=== PATIENT | female | born 1970 | race Caucasian/White ===

== ENCOUNTER 2018-07-14 13:10 | Emergency (ER) | payer MEDICAID, SELFPAY ==
[2018-07-14] VITALS (27 sets, daily range): BP systolic 144–179; BP diastolic 73–90; PULSE 87–101; RESP 16–26; TEMP 35.9–36.7; O2SAT 90–97
--- NOTE | 2018-07-14 14:05 | ED.GENADUL_ITS ---
Discharge Plan Disposition Patient Disposition: HOME Condition: Stable Discharge Details Chief Complaint: GenMedical Clinical Impression: Otitis media, URI (upper respiratory infection), Nausea vomiting and diarrhea Primary Care Provider: Namrata Navas ED Provider: Sheela Naik Home Meds and New Rx's Prescriptions: New amoxicillin 500 mg tablet 500 mg PO TID 10 Days Qty: 30 RF: 0 ondansetron HCl [Zofran] 4 mg tablet 4 mg PO TID PRN (Reason: nausea and vomiting) Qty: 6 RF: 0 No Action acetaminophen [Tylenol Extra Strength] 500 MG tablet 500 mg PO Q6H PRN RF: 0 omeprazole 10 MG capsule,delayed release(DR/EC) 20 mg PO DAILY RF: 0 albuterol sulfate 8.5 GM HFA aerosol inhaler 2 puff Inhalation Q6H PRN RF: 0 Loratadine 10 MG TAB.RAPDIS 10 mg PO DAILY RF: 0 metformin 500 MG tablet 500 mg PO HS RF: 0 cholecalciferol (vitamin D3) 1,000 UNITS tablet 3,000 units PO DAILY RF: 0 Discharge Instructions Instructions: Otitis Media (ED), Upper Respiratory Infection (ED), Acute Nausea and Vomiting (ED) Additional Instructions: Alternate Tylenol and Motrin as needed and directed for pain. Take [id number] cough and cold medication as needed and directed for your symptoms. If your symptoms do not improve or worsen over the next 3 days, you may start the antibiotics. Follow-up with your primary care doctor in 1 week for reevaluation. Return immediately to the emergency department any worsening or new concerning symptoms. Stand Alone Forms: Work Release Discharge Data Discharge Date/Time-TO BE ENTERED AT DEPARTURE: 07/14/18 16:10 Discharge Physician: Sheela Naik Medical Decision Making 48-year-old female with history of asthma, GERD, obesity, diabetes who presents with headache, sore throat, ear pain, nasal congestion, dry cough, vomiting and diarrhea for the past 5 days. She did also admit to one episode today of bright red rectal bleeding but states she has a history of hemorrhoids. She states she has had normal bowel movement since then. Blood pressure hypertensive, heart rate mildly elevated on arrival. Afebrile. Patient has bilateral TM erythema and dullness. Diminished breath sounds with scattered wheezing throughout. She denies any chest pain or shortness of breath or dizziness. Her abdomen is soft and nontender. She appears nontoxic and in no acute distress. No meningeal signs. No focal deficits. Differential diagnosis includes URI, viral syndrome, influenza, pneumonia. Patient had an IV placed on arrival. Will give fluids, Toradol, Compazine, Benadryl, and check a rapid influenza. After these orders were placed, patient is refusing and is requesting to go home. She also refused rectal exam. Patient had labs drawn on arrival which she does not want to wait for this. The labs were resulted and do appear un remarkable. Influenza negative. Discussed with patient with her bilateral ear pain which is one of her main complaints, will give a prescription for antibiotics if her symptoms do not improve or worsen. Instructed to follow-up with primary care doctor and return here at any time if worse. HPI General Mode of arrival: ambulatory . Date/Time Provider Initiated Documentation: 07/14/18 14:03 . Limitations to Documentation: no limitations . Information obtained by: patient . HPI Narrative: Patient is a 48-year-old female with history of asthma, GERD, obesity, diabetes who presents with headache, sore throat, ear pain, nasal congestion, dry cough, vomiting and diarrhea for the past 5 days. She did also admit to one episode today of bright red rectal bleeding but states she has a history of hemorrhoids. She states she has had normal bowel movement since then. She states the symptoms bothering her the most are in the headache, ear pain, and nasal congestion. She denies any sick contacts, recent travel or recent antibiotics. Patient states her cough has been dry. She denies any neck pain. Related Data Home Medications Medication Instructions Recorded Confirmed acetaminophen [Tylenol Extra 500 mg PO Q6H PRN tab-cap 09/27/13 07/14/18 Strength] albuterol sulfate 2 puff INHALATION Q6H PRN inhaler 09/27/13 07/14/18 omeprazole 20 mg PO DAILY tab-cap 09/27/13 07/14/18 Loratadine 10 mg PO DAILY tab-cap 08/06/17 07/14/18 metformin 500 mg PO HS 08/25/17 07/14/18 cholecalciferol (vitamin D3) 3,000 units PO DAILY 10/15/17 07/14/18 amoxicillin 500 mg PO TID 10 Days #30 tab 07/14/18 ondansetron HCl [Zofran] 4 mg PO TID PRN #6 tab 07/14/18 Previous Rx's Medication Instructions Recorded amoxicillin 500 mg PO TID 10 Days #30 tab 07/14/18 ondansetron HCl [Zofran] 4 mg PO TID PRN #6 tab 07/14/18 Allergies Allergy/AdvReac Type Severity Reaction Status Date / Time ranitidine Allergy Mild Hives Unverified 12/02/17 14:58 ENVIRONMENTAL Allergy Mild Uncoded 12/02/17 14:58 FALSE POISTIVE PPD Allergy Mild Uncoded 12/02/17 14:58 General Stated Complaint: GenMedical ISAIAS: 3 Review of Systems Review of Systems All systems reviewed & are unremarkable except as noted in HPI and below Constitutional Reports as per HPI, Denies chills, Denies fever(s) and Reports headache(s) Eyes Denies blurry vision ENT Denies dizziness, Reports otalgia, Reports headache(s), Reports nasal congestion, Reports sore throat and Denies throat swelling Cardiovascular Denies chest pain and Denies dyspnea Respiratory Denies cough and Denies dyspnea Gastrointestinal Denies abdominal pain, Reports diarrhea and Reports vomiting Genitourinary Denies hematuria and Denies dysuria Musculoskeletal Denies back pain and Denies numbness Integumentary/Breasts Denies lesions and Denies rash Neurologic Denies dizziness, Reports headache(s), Denies focal weakness and Denies numbness Allergic/Immunologic Denies throat swelling [facility] Medical History Abdominal pain, epigastric Asthma Breast lump or mass Chronic diarrhea Contraception Dysfunctional uterine bleeding Fatigue GERD (gastroesophageal reflux disease) Hemorrhoids Hx of colonic polyp Morbid obesity Palpitations Prediabetes Rectal bleeding Tobacco abuse Surgical History Cholecystectomy Colonoscopy - MAC (02/07/17) Colonoscopy - MAC (09/03/17) Repair of umbilical hernia Family History Mother Colon cancer Sister Colon cancer Brother Colon cancer Social History Smoking/Tobacco Use Status: Current every day alcohol intake: current alcohol intake frequency: a few times a month substance use type: does not use Exam Const General: cooperative Nutritional Appearance: obese Orientation: alert, awake and oriented x3 HENMT Head: normal to inspection Ears: hearing grossly normal bilaterally, EAC abnormal erythema bilaterally and TM abnormal dull and erythematous bilaterally General nose exam: external nose normal Face and sinus: normal facial exam and tenderness bilaterally Mouth: oral mucosae normal Teeth and gingiva: dentition normal Throat: posterior oropharynx normal Eyes General: appearance normal, both eyes and all related structures Eyelids: eyelids normal EOM: EOM intact bilaterally Neck Neck: normal visual inspection Lymphatic: no lymphadenopathy noted Chest Chest: normal inspection of the chest Resp Effort & Inspection: normal respiratory effort and able to speak in complete sentences Auscultation: diminished lung sounds bilaterally throughout and wheezes scattered wheezes Cardio Rate: regular rate Rhythm: regular rhythm GI Inspection: normal to inspection and obesity Palpation: soft, not firm, no guarding, no hepatosplenomegaly, no masses and nontender Auscultation: normal bowel sounds Back/Spine/Pelvis Back: no CVA tenderness Skin General skin exam: no rashes or lesions noted Neuro General: alert and awake Cognition: normal cognition Speech: speech normal Gait: normal gait Motor: muscle tone normal throughout Sensory Exam: no sensory deficits noted Extrem General: normal to inspection, full ROM, normal capillary refill and no edema Psych Appearance: grossly normal Mental Status: mental status grossly normal Speech and Movement: speech and movement normal Affect: normal affect Thought Process: normal Course Vital Signs Temperature 96.6 F L 07/14/18 13:14 Pulse 101 H 07/14/18 13:14 Respiratory Rate 22 07/14/18 13:14 Blood Pressure 179/82 H 07/14/18 13:14 Pulse Oximetry 97 07/14/18 13:14 Temperature 98.1 F 07/14/18 13:55 Temperature Source Temporal Artery Scan 07/14/18 13:55 Pulse 91 H 07/14/18 13:55 Respiratory Rate 20 07/14/18 13:55 Respiratory Effort 07/14/18 13:51 Respiratory Depth Normal 07/14/18 13:51 Respiratory Pattern Normal 07/14/18 13:51 Blood Pressure 162/76 H 07/14/18 13:55 Blood Pressure Position Sitting 07/14/18 13:14 Pulse Oximetry 93 L 07/14/18 13:55 Oxygen Delivery Method Room Air 07/14/18 13:55 Oxygen Flow Rate 0 07/14/18 13:55 Pain Level 5 07/14/18 13:55 Comment 07/14/18 13:55
--- NOTE | 2018-07-14 14:32 | NUR.NOTE ---
pt stated that she dosn't want any meds or iv fluids this is taking to long and she just wants to go home ER doctor notified Nursing Note:
[2018-07-14 14:35] LABS: HCT 46.8 % (36.0-46.0); HGB 15.2 g/dL (12.0-15.5); Mean Corp. HGB Concentration 32.5 g/dL (32.0-36.0); Mean Corpuscular Hemoglobin 28.5 pg (27.0-33.0); Mean Corpuscular Volume 87.6 fL (80-95); Platelet Count 297 x1000/uL (130-400); RBC 5.34 m/cumm (4.00-5.20); RBC Distribution Width 14.9 % (11.7-14.6); White Blood Cell Count 9.92 k/cumm (4.4-10.8)
--- NOTE | 2018-07-14 14:43 | NUR.NOTE ---
ER dcotor ask if pt could wait till she came to see her before leaveing the er and pt stated that she would wait Nursing Note:
[2018-07-14 14:58] LABS: ALT 27 U/L (12-78); AST 11 U/L (15-37); Albumin 3.2 g/dL (3.4-5.0); Alkaline Phosphatase 64 U/L (46-116); Anion Gap 5.4 mmol/L (3-11); BUN 10 mg/dL (7-18); Bilirubin, Total 0.4 mg/dL (0.2-1.0); CO2 33.6 mmol/L (21.0-32.0); CREATININE 0.57 mg/dL (0.55-1.02); Calcium 9.3 mg/dL (8.5-10.1); Chloride 101 mmol/L (98-107); Glucose 126 mg/dL (70-100); Potassium 4.3 mmol/L (3.5-5.1); Sodium 140 mmol/L (136-145); Total Protein 7.3 g/dL (6.4-8.2)
[2018-07-14 14:59] LABS: Troponin I < 0.02 ng/mL (0.00-0.06)
== END 2018-07-14 16:10 | disposition home or self-care (01) ==
PROVIDERS: Emergency Provider Physician Assistant; PCP Nurse Practitioner Family
DX: H66.93 Otitis media, unspecified, bilateral (principal); R06.2 Wheezing; R51 Headache; R11.2 Nausea with vomiting, unspecified; R19.7 Diarrhea, unspecified; R05 Cough; J02.9 Acute pharyngitis, unspecified; I10 Essential (primary) hypertension; Z53.29 Procedure and treatment not carried out because of patient's decision for other reasons
CPT/HCPCS: 36415; 80048; 80053; 85027; 87449; 99283; 84484; 85025

== ENCOUNTER 2018-08-17 01:45 | Outpatient (CLI) | payer MEDICAID, SELFPAY ==
[2018-08-17] MEDS: Omnipaque 350 MG/ML 50 ML BTL IJ (09:18)
[2018-08-17] MEDS: Breeza Beverage 473 ML BTL PO ×2 (10:50→10:51)
[2018-08-17] MEDS: Omnipaque 350 MG/ML 100 ML BTL IJ (10:50)
--- NOTE | 2018-08-17 10:50 | DI.CT_ITS ---
SYMPTOMS/DIAGNOSIS: RIGHT LOWER QUADRANT ABDOMINAL PAIN, R10.31; H/O PARTIAL RESECTION OF COON, Z90.49 CT OF THE ABDOMEN AND PELVIS: Comparison is made with noncontrast exam dated October,. Images were performed from the lung bases through the ischial tuberosities after oral and IV contrast. The lung bases are clear. The heart size is normal. The liver shows severe fatty infiltration with some sparing at the tip of the right lobe. The liver is also enlarged. The patient is status post cholecystectomy. There is no biliary dilatation. The spleen, adrenals, pancreas and kidneys are unremarkable. The patient is status post right colectomy. There is no bowel dilatation or inflammatory change. The small bowel is unremarkable. The bladder, uterus and ovaries are also unremarkable. A small amount of fat is seen at the umbilicus. The aorta is normal in diameter. There are degenerative changes in the spine. IMPRESSION: 1. Status post right colectomy. No inflammation or bowel dilatation is seen. 2. Severe fatty infiltration of the liver. No biliary dilatation. Status post cholecystectomy.
== END 2018-08-17 02:05 ==
PROVIDERS: PCP Nurse Practitioner Family; Visit Provider Nurse Practitioner Family
DX: R10.31 Right lower quadrant pain (principal); K76.0 Fatty (change of) liver, not elsewhere classified; Z90.49 Acquired absence of other specified parts of digestive tract
CPT/HCPCS: 74177; J3490; Q9967

== ENCOUNTER 2018-10-08 16:17 | Emergency (ER) | payer MEDICAID, SELFPAY ==
[2018-10-08] VITALS (13 sets, daily range): BP systolic 121–142; BP diastolic 63–94; PULSE 91–104; RESP 18–27; TEMP 36.7; O2SAT 88–95
--- NOTE | 2018-10-08 16:32 | ED.GENADUL_ITS ---
Discharge Plan Disposition Patient Disposition: HOME Condition: Stable Discharge Details Chief Complaint: Palpitatns Clinical Impression: Palpitations Primary Care Provider: Namrata Navas ED Provider: Alexys Bowers Home Meds and New Rx's Prescriptions: No Action acetaminophen [Tylenol Extra Strength] 500 MG tablet 500 mg PO Q6H PRN RF: 0 omeprazole 10 MG capsule,delayed release(DR/EC) 20 mg PO DAILY RF: 0 albuterol sulfate 8.5 GM HFA aerosol inhaler 2 puff Inhalation Q6H PRN RF: 0 Loratadine 10 MG TAB.RAPDIS 10 mg PO DAILY RF: 0 metformin 500 MG tablet 500 mg PO BID RF: 0 cholecalciferol (vitamin D3) 1,000 UNITS tablet 3,000 units PO DAILY RF: 0 aspirin [Aspirin Low Dose] 81 mg Tablet,Delayed Release (Dr/Ec) 81 mg PO DAILY RF: 0 Discharge Instructions Instructions: Palpitations (ED) Additional Instructions: follow up with your primary care provider within 1 week and discuss having outpatient heart monitor applied if you have severe worsening symptoms, difficulty breathing or fevers return to the emergency department Medical Decision Making 48 yo female with hx of DM, asthma, who comes in with a year of intermittent feeling her heart beating hard. today since 11am has had this feeling and continues to have this feeling and has unremarkable ekg and tele monitoring. Denies passing out ,chest pressure, pain with exertion or other symptoms typical of acs, heart score is 2, ekg nondiagnostic and heart score is 2, will send troponin. Will keep on tele to monitor for arrythmia though her tele is normal now and is having symptoms so doubt afib or vtach. She has no pleuritic chest pain, tachycardia to suggest PE, has a hx of smoking and asthma with some mild apical wheezing which likely is causing her mild hypoxia. No tearing back pain and normal vascular exam so doubt dissection pt remains stable, fell asleep and easily arouses on repeat exam. Tele unremar kable and labs unremarkable. Will d/c and advised f/u with pcp and return precautions given Differential Diagnosis afib, pvc's, anemia Lab Data Lab results reviewed: Yes I reviewed the patient's lab results. ECG Data Attestation: I personally reviewed and interpreted this ECG (s) as follows: Prior ECG tracings: not available for review Interpretation: sinus rhythm, rate of 100, pr 164, no acute st twave ischemic findings HPI General Mode of arrival: ambulatory . Date/Time Provider Initiated Documentation: 10/08/18 16:24 . Limitations to Documentation: no limitations . Information obtained by: patient . History of Present Illness 48 year old F presents to the emergency department with the chief complaint of palpitations, described as moderate, Quality is described as aching, and is localized to the chest. Patient reports no radiation. Patient started experiencing this year(s) (1) and it has been constant. No relieving factors improve sympto m(s), No exacerbating factors reported . Patient notes no other symptoms.. Patient did receive the following treatments prior to arrival, none Related Data Home Medications Medication Instructions Recorded Confirmed acetaminophen [Tylenol Extra 500 mg PO Q6H PRN tab-cap 09/27/13 10/08/18 Strength] albuterol sulfate 2 puff INHALATION Q6H PRN inhaler 09/27/13 10/08/18 omeprazole 20 mg PO DAILY tab-cap 09/27/13 10/08/18 Loratadine 10 mg PO DAILY tab-cap 08/06/17 10/08/18 metformin 500 mg PO BID 08/25/17 10/08/18 cholecalciferol (vitamin D3) 3,000 units PO DAILY 10/15/17 10/08/18 aspirin [Aspirin Low Dose] 81 mg PO DAILY 10/08/18 10/08/18 Allergies Allergy/AdvReac Type Severity Reaction Status Date / Time ranitidine Allergy Mild Hives Unverified 10/08/18 16:36 ENVIRONMENTAL Allergy Mild Uncoded 10/08/18 16:36 FALSE POISTIVE PPD Allergy Mild Uncoded 10/08/18 16:36 General ISAIAS: 3 Review of Systems Review of Systems All systems reviewed & are unremarkable except as noted in HPI and below Constitutional Denies chills, Denies fever(s) and Denies weakness ENT Denies change in voice Cardiovascular Denies dyspnea Respiratory Denies cough and Denies dyspnea Gastrointestinal Denies abdominal pain, Denies nausea and Denies vomiting Genitourinary Denies dysuria Musculoskeletal Denies joint swelling Integumentary/Breasts Denies rash Neurologic Denies weakness PFSH Medical History Abdominal pain, epigastric Asthma Breast lump or mass Chronic diarrhea Contraception Dysfunctional uterine bleeding Fatigue GERD (gastroesophageal reflux disease) Hemorrhoids Hx of colonic polyp Morbid obesity Palpitations Prediabetes Rectal bleeding Tobacco abuse Surgical History Cholecystectomy Colonoscopy - MAC (02/07/17) Colonoscopy - MAC (09/03/17) Repair of umbilical hernia Family History Mother Colon cancer Sister Colon cancer Brother Colon cancer Social History Smoking/Tobacco Use Status: Current every day Alcohol Intake: never Drug use: Never Substance use type: does not use Do you feel safe at home: Yes Do you feel safe in your relationship?: Yes Exam Const General: no acute distress Orientation: alert HENMT Head: normal to inspection Ears: external ears normal General nose exam: external nose normal Mouth: moist mucous membranes Eyes General: appearance normal, both eyes and all related structures Neck Neck: normal visual inspection Resp Effort & Inspection: normal respiratory effort and able to speak in complete sentences Cardio Rate: regular rate Skin General skin exam: no rashes or lesions noted Neuro General: alert and oriented x3 Extrem General: normal to inspection Psych Mental Status: mental status grossly normal
[2018-10-08 16:58] LABS: Abs Immature Grans 0.02 k/cumm (0.0-0.09); Absolute Basophil Count 0.03 k/cumm (0.0-0.2); Absolute Eosinophil Count 0.31 k/cumm (0.0-0.7); Absolute Lymphocyte Count 2.51 k/cumm (1.2-3.4); Absolute Monocyte Count 0.69 k/cumm (0.11-0.7); Absolute Neutrophil Count 7.04 k/cumm (1.2-6.7); Basophils % 0.3; Eosinophils % 2.9; HCT 43.8 % (36.0-46.0); HGB 14.3 g/dL (12.0-15.5); Immature Grans % 0.2; Lymphocytes % 23.7; Mean Corp. HGB Concentration 32.6 g/dL (32.0-36.0); Mean Corpuscular Hemoglobin 28.7 pg (27.0-33.0); Mean Platelet Volume 10.1 fL (8.0-11.0); Monocytes % 6.5; Neutrophils % 66.4; Platelet Count 231 x1000/uL (130-400); RBC 4.98 m/cumm (4.00-5.20); RBC Distribution Width 14.4 % (11.7-14.6)
[2018-10-08 17:15] LABS: ALT 34 U/L (12-78); AST 12 U/L (15-37); Albumin 3.1 g/dL (3.4-5.0); Alkaline Phosphatase 68 U/L (46-116); Anion Gap 7.2 mmol/L (3-11); BUN 16 mg/dL (7-18); Bilirubin, Total 0.4 mg/dL (0.2-1.0); CO2 27.8 mmol/L (21.0-32.0); CREATININE 0.64 mg/dL (0.55-1.02); Calcium 8.8 mg/dL (8.5-10.1); Chloride 102 mmol/L (98-107); Glucose 166 mg/dL (70-100); Magnesium 1.7 mg/dL (1.8-2.4); Potassium 3.9 mmol/L (3.5-5.1); Sodium 137 mmol/L (136-145); Total Protein 6.8 g/dL (6.4-8.2)
[2018-10-08 17:39] LABS: Troponin I < 0.02 ng/mL (0.00-0.06)
== END 2018-10-08 17:53 | disposition home or self-care (01) ==
PROVIDERS: Emergency Provider Emergency Medicine; PCP Nurse Practitioner Family
DX: R00.2 Palpitations (principal); E11.9 Type 2 diabetes mellitus without complications; Z79.84 Long term (current) use of oral hypoglycemic drugs; J45.909 Unspecified asthma, uncomplicated; F17.210 Nicotine dependence, cigarettes, uncomplicated
CPT/HCPCS: 36415; 80053; 93005; 99284; 83735; 84484; 85025; 93010

== ENCOUNTER 2018-10-26 01:30 | Outpatient (CLI) | payer MEDICAID, SELFPAY ==
--- NOTE | 2018-10-30 09:49 | HOLTER_ITS ---
DATE OF DICTATION: October 30, 2018 INDICATION: Palpitations. 48-HOUR HOLTER MONITOR Baseline sinus rhythm. Average heart rates 100 bpm. Rare, isolated ventricular ectopy. No non-sustained VT. Rare, isolated atrial ectopy. No atrial fibrillation or SVT. No significant pauses or bradyarrhythmias. Diary entries of chest pounding/lightheadedness correspond to sinus rhythm. Overall sinus rhythm with rare ectopy.
== END 2018-10-26 01:50 ==
PROVIDERS: PCP Nurse Practitioner Family; Visit Provider Nurse Practitioner Family
DX: R00.2 Palpitations (principal); I49.3 Ventricular premature depolarization; I49.1 Atrial premature depolarization
CPT/HCPCS: 93225

== ENCOUNTER 2018-10-28 15:24 | Outpatient (CLI) | payer MEDICAID, SELFPAY | END 2018-10-28 15:44 | PROVIDERS: PCP Nurse Practitioner Family; Visit Provider Nurse Practitioner Family | DX: R00.2 Palpitations (principal); I49.3 Ventricular premature depolarization; I49.1 Atrial premature depolarization | CPT/HCPCS: 93226 ==

== ENCOUNTER 2019-09-20 16:32 | Outpatient (REF) | payer MEDICAID, SELFPAY ==
[2019-09-22 20:04] LABS: SARS-CoV-2 RNA Undetected (Undetected); SARS-CoV-2 Specimen Source Nasopharynx
== END 2019-09-20 16:52 ==
LOC: NCHCN 16:32
PROVIDERS: PCP Nurse Practitioner Family; Visit Provider Nurse Practitioner Family
DX: R05 Cough (principal); R50.9 Fever, unspecified
CPT/HCPCS: U0003

== ENCOUNTER 2019-10-19 10:38 | Outpatient (REF) | payer MEDICAID, SELFPAY ==
[2019-10-19 15:57] LABS: BUN 13 mg/dL (7-18); CREATININE 0.52 mg/dL (0.55-1.02); Calcium 9.1 mg/dL (8.5-10.1); Chloride 101 mmol/L (98-107); Glucose 118 mg/dL (74-106); Magnesium 1.7 mg/dL (1.8-2.4); Potassium 4.4 mmol/L (3.5-5.1); Sodium 140 mmol/L (136-145); Vitamin B12 215 pg/mL (193-986)
[2019-10-20 10:26] LABS: Hepatitis C Ab w Rflx HCV PCR Negative (Negative)
== END 2019-10-19 10:58 ==
LOC: NCHCN 10:38
PROVIDERS: PCP Nurse Practitioner Family; Visit Provider Family Medicine
DX: I10 Essential (primary) hypertension (principal); E83.42 Hypomagnesemia; Z90.49 Acquired absence of other specified parts of digestive tract; E11.9 Type 2 diabetes mellitus without complications; Z11.59 Encounter for screening for other viral diseases
CPT/HCPCS: 80048; 86803; 82607; 83735

== ENCOUNTER 2020-06-07 00:43 | Outpatient (CLI) | payer MEDICAID, SELFPAY ==
--- NOTE | 2020-06-07 09:30 | DI.MAMMO_ITS ---
EXAM: MG MAMMO SCREENING CLINICAL HISTORY: SCREENING,Z12.39 TECHNIQUE: Bilateral full field digital CC and MLO mammographic images were obtained with 3D tomosyn thesis and utilizing computer aided detection (CAD). COMPARISON: Available for comparison. FINDINGS: Masses/Architectural Distortion: None seen. Microcalcifications: No suspicious pleomorphic-type are seen. Skin Thickening/Nipple Retraction: None. IMPRESSION: 1. No significant interval change with no specific features of malignancy noted. 2. Unless there is more urgent need, screening mammography is recommended, as per [place] [employer] guidelines. BI-RADS Category 1 - Negative Breast Density - Category A - Almost entirely fatty Breast density category C or D implies that the patient has dense breast tissue. Dense breast tissue is very common and is not abnormal but dense breast tissue can make it harder to find cancer on a ma mmogram. Also, dense breast tissue may increase their breast cancer risk. This information about the result of the mammogram report was provided to the patient to raise their awareness. Use this report when you speak with the patient about their risks for breast cancer, which includes their family hist ory. At that time, you may recommend for more screening tests (Ultrasound or MRI) as they might be us eful based on their risk. A negative radiographic report should not delay biopsy if a dominant or clinically suspicious mass is present. Up to ten percent of cancers are not identified on mammography. A negative report may reinforce clinical impression. Adenosis and dense breasts may obscure an underlying neoplasm. False positive reports average 6 to 10%. Patient will receive a letter notifying them of these results.
== END 2020-06-07 01:03 ==
PROVIDERS: PCP Nurse Practitioner Family; Visit Provider Nurse Practitioner Family
DX: Z12.31 Encounter for screening mammogram for malignant neoplasm of breast (principal)
CPT/HCPCS: 77063; 77067

== ENCOUNTER 2020-07-28 14:24 | Outpatient (REF) | payer MEDICAID, SELFPAY ==
[2020-07-28 19:47] LABS: Anion Gap 8.6 mmol/L (3-11); BUN 14 mg/dL (7-18); CO2 29.4 mmol/L (21.0-32.0); CREATININE 0.5 mg/dL (0.55-1.02); Calcium 9.5 mg/dL (8.5-10.1); Calculated LDL 107 mg/dL (<100); Chloride 103 mmol/L (98-107); Cholesterol 181 mg/dL (<200); Glucose 114 mg/dL (74-106); HDL Cholesterol 39 mg/dL (40-60); Potassium 4.5 mmol/L (3.5-5.1); Sodium 141 mmol/L (136-145); Triglyceride 179 mg/dL (<150)
== END 2020-07-28 14:25 | disposition home or self-care (01) ==
LOC: NCHCN 14:24
PROVIDERS: PCP Nurse Practitioner Family; Visit Provider Nurse Practitioner Family
DX: I10 Essential (primary) hypertension (principal); Z13.220 Encounter for screening for lipoid disorders
CPT/HCPCS: 80048; 80061

== ENCOUNTER 2020-08-30 14:39 | Outpatient (REF) | payer MEDICAID, SELFPAY ==
[2020-08-30 19:41] LABS: HCT 43.9 % (36.0-46.0); MCH 28.4 pg (27.0-33.0); MCHC 31.9 % (32.0-36.0); MPV 10.7 fL (8.0-11.0); Platelet Count 272 10^3/uL (130-400); RBC 4.93 10^6/uL (3.93-5.22); RDW 13.8 % (11.7-14.6); RDW-SD 45.1 fL; WBC 9.08 10^3/uL (4.4-10.8)
== END 2020-08-30 14:40 | disposition home or self-care (01) ==
LOC: NCHCN 14:39
PROVIDERS: PCP Nurse Practitioner Family; Visit Provider Nurse Practitioner Family
DX: N64.89 Other specified disorders of breast (principal)
CPT/HCPCS: 85027

== ENCOUNTER 2020-12-14 11:28 | Outpatient (CLI) | payer MEDICAID, SELFPAY ==
--- NOTE | 2020-12-14 12:02 | DI.RAD_ITS ---
Exam(s) XR KNEE LT 3V AP,LAT,JOBY EXAM: XR KNEE LT 3V AP,LAT,JOBY CLINICAL HISTORY: KNEE PAIN M 25.562. TECHNIQUE: 2D digital imaging was performed. COMPARISON: No exams were available for comparison FINDINGS: There is no evidence of fracture. There appears to be a small amount of increased joint fluid. Mini mal degenerative changes. No joint space narrowing. No osteophytes. Bone density is normal. No om inous osseous lesions. IMPRESSION: No significant radiographic findings. There appears to be a small amount of increased joint fluid. Appropriate follow-up recommended. DATA REPOSITORY: RADIATION DOSE DELIVERED:
== END 2020-12-14 11:48 ==
PROVIDERS: PCP Nurse Practitioner Family; Visit Provider Physician Assistant Medical
DX: M25.562 Pain in left knee (principal)
CPT/HCPCS: 73562

== ENCOUNTER 2021-01-03 09:01 | Outpatient (CLI) | payer MEDICAID, SELFPAY ==
--- NOTE | 2021-01-03 08:45 | DI.RAD_ITS ---
Exam(s) XR KNEE LT 1V EXAM: XR KNEE LT 1V CLINICAL HISTORY: left knee pain. TECHNIQUE: 2D digital imaging was performed. COMPARISON: CR XR KNEE LT 3V AP,LAT,JOBY from 12/14/2020 FINDINGS: Single sunrise-merchant's view of the left knee. Other images of the left knee performed 12/14/2020 reviewed There is no fracture of the patella evident on this single view. However, there is mild lateral disp lacement by approximately 4-5 millimeters. The actual retropatellar joint space appears relatively well-preserved. No obvious osteochondral def ect. IMPRESSION: Mild lateral patellar displacement. No obvious fracture. DATA REPOSITORY: RADIATION DOSE DELIVERED:
== END 2021-01-03 09:02 | disposition home or self-care (01) ==
LOC: DIORS 09:01
PROVIDERS: PCP Nurse Practitioner Family; Referring Provider Nurse Practitioner Family; Visit Provider Student in an Organized Health Care Education/Training Program
DX: S83.015A Lateral dislocation of left patella, initial encounter (principal); X58.XXXA Exposure to other specified factors, initial encounter
CPT/HCPCS: 73560

== ENCOUNTER 2021-01-30 10:20 | Outpatient (REF) | payer MEDICAID, SELFPAY ==
--- NOTE | 2021-01-30 08:25 | PAPFT_PTH ---
PATIENT: [facility] Barone [id number] AGE/SX: 50/F ROOM: RE01/30/[address]: Namrata Navas : 1970 BED: DIS: 01/30/2021 SPEC #: [id number] RECD: 01/30/21 12:56 STATUS: BETHANY REMayi #: [id number] HARSHA: 01/30/21 08:[address]: Namrata Navas [facility]PT[facility] Cytology RECD BY: Destiny Campos Tissues: 1 - CX/ENDOCX FOR PAP SMEARS Procedures: PAP THIN PREP/UVM Screening HPV DNA PROBE Comments: [id number] (HPV 16 & 18/45)
== END 2021-01-30 10:21 | disposition home or self-care (01) ==
LOC: NCHCN 10:20
PROVIDERS: PCP Nurse Practitioner Family; Visit Provider Nurse Practitioner Family
DX: Z12.4 Encounter for screening for malignant neoplasm of cervix (principal); Z11.51 Encounter for screening for human papillomavirus (HPV); R87.810 Cervical high risk human papillomavirus (HPV) DNA test positive
CPT/HCPCS: 88142; 87624

== ENCOUNTER 2021-06-22 10:33 | Outpatient (REF) | payer MEDICAID, SELFPAY ==
[2021-06-22 16:00] LABS: Bilirubin Negative (Negative); Blood Negative (Negative); Clarity Clear (Clear); Glucose Negative (Negative); Ketones Negative (Negative); Leukocyte Esterase Negative (Negative); Nitrite Negative (Negative); Specific Gravity >= 1.030 (1.005-1.025); Urobilinogen 0.2 EU/dL (Up TO 0.2); pH 5.5 (5-8)
[2021-06-22 20:47] LABS: ALT 64 U/L (14-59); AST 38 U/L (15-37); Albumin 3.6 g/dL (3.4-5.0); Alkaline Phosphatase 70 U/L (46-116); Anion Gap 8.8 mmol/L (3-11); BUN 20 mg/dL (7-18); Bilirubin, Total 0.5 mg/dL (0.2-1.0); CO2 29.2 mmol/L (21.0-32.0); CREATININE 0.6 mg/dL (0.55-1.02); Chloride 102 mmol/L (98-107); Glucose 107 mg/dL (74-106); Potassium 4.6 mmol/L (3.5-5.1); Sodium 140 mmol/L (136-145); Total Protein 6.8 g/dL (6.4-8.2)
[2021-06-25 10:20] LABS: HIV-1/2 Ag & Ab Screen Negative (Negative)
== END 2021-06-22 10:34 | disposition home or self-care (01) ==
LOC: NCHCN 10:33
PROVIDERS: PCP Nurse Practitioner Family; Visit Provider Nurse Practitioner Family
DX: I10 Essential (primary) hypertension (principal); E11.9 Type 2 diabetes mellitus without complications; Z11.4 Encounter for screening for human immunodeficiency virus [HIV]; R35.1 Nocturia
CPT/HCPCS: 80053; 87389; 81003

== ENCOUNTER 2021-09-25 03:54 | Outpatient (CLI) | payer MEDICAID, SELFPAY | END 2021-09-25 03:55 | disposition home or self-care (01) | LOC: DS 03:54 | PROVIDERS: PCP Nurse Practitioner Family; Visit Provider Dietitian, Registered ==

== ENCOUNTER 2021-12-20 15:53 | Outpatient (REF) | payer MEDICAID, SELFPAY ==
[2021-12-20 14:30] LABS: Uric Acid 7.5 mg/dL (2.6-6.0)
== END 2021-12-20 15:54 | disposition home or self-care (01) ==
LOC: NCHCN 15:53
PROVIDERS: PCP Nurse Practitioner Family; Visit Provider Nurse Practitioner Family
DX: M79.671 Pain in right foot (principal); R79.89 Other specified abnormal findings of blood chemistry
CPT/HCPCS: 84550

== ENCOUNTER → 2021-12-25 01:56 | Outpatient (CLI) | payer MEDICAID, SELFPAY ==
--- NOTE | 2021-12-25 14:50 | DI.MAMMO_ITS ---
Exam(s) MAMMO SCREENING EXAM: MAMMO SCREENING CLINICAL HISTORY: SCREENING FOR BREAST CANCER Z12.39 TECHNIQUE: Bilateral full field digital CC and MLO mammographic images were obtained with 3D tomosyn thesis and utilizing computer aided detection (CAD). COMPARISON: Available for comparison. FINDINGS: Masses/Architectural Distortion: None seen. Microcalcifications: No suspicious pleomorphic-type are seen. Skin Thickening/Nipple Retraction: None. IMPRESSION: 1. No significant interval change with no specific features of malignancy noted. 2. Unless there is more urgent need, screening mammography is recommended, as per [place] [employer] guidelines. BI-RADS Category 1 - Negative Breast Density - Category A - Almost entirely fatty Breast density category C or D implies that the patient has dense breast tissue. Dense breast tissue is very common and is not abnormal but dense breast tissue can make it harder to find cancer on a ma mmogram. Also, dense breast tissue may increase their breast cancer risk. This information about the result of the mammogram report was provided to the patient to raise their awareness. Use this report when you speak with the patient about their risks for breast cancer, which includes their family hist ory. At that time, you may recommend for more screening tests (Ultrasound or MRI) as they might be us eful based on their risk. A negative radiographic report should not delay biopsy if a dominant or clinically suspicious mass is present. Up to ten percent of cancers are not identified on mammography. A negative report may reinforce clinical impression. Adenosis and dense breasts may obscure an underlying neoplasm. False positive reports average 6 to 10%. Patient will receive a letter notifying them of these results.
== END ==
PROVIDERS: PCP Nurse Practitioner Family; Visit Provider Nurse Practitioner Family
DX: Z12.31 Encounter for screening mammogram for malignant neoplasm of breast (principal)
CPT/HCPCS: 77063; 77067

== ENCOUNTER 2022-04-02 15:51 | Outpatient (REF) | payer MEDICAID, SELFPAY ==
--- NOTE | 2022-04-02 11:50 | PAPFT_PTH ---
PATIENT: [facility] Barone [id number] AGE/SX: 51/F ROOM: RE04/02/[address]: Namrata Navas : 1970 BED: DIS: 04/02/2022 SPEC #: [id number] RECD: 04/02/22 18:12 STATUS: BETHANY REQ #: [id number] HARSHA: 04/02/22 11:[address]: Namrata Navas DEPT: [facility] Cytology RECD BY: Destiny Campos Tissues: 1 - CX/ENDOCX FOR PAP SMEARS Procedures: PAP THIN PREP/UVM Screening HPV DNA PROBE Comments: [id number]
== END 2022-04-02 15:52 | disposition home or self-care (01) ==
LOC: NCHCN 15:51
PROVIDERS: PCP Nurse Practitioner Family; Visit Provider Nurse Practitioner Family
DX: Z12.4 Encounter for screening for malignant neoplasm of cervix (principal); Z11.51 Encounter for screening for human papillomavirus (HPV)
CPT/HCPCS: 88142; 87624

== ENCOUNTER → 2022-04-24 02:30 | Outpatient (CLI) | payer MEDICAID, SELFPAY ==
--- NOTE | 2022-04-24 | DI.US_ITS ---
Exam(s) US AXILLA LT EXAM: US AXILLA LT CLINICAL HISTORY: BREAST TENDERNESS N64.4, LT LATERAL BREAST LT MEDIAL AXILLA TECHNIQUE: Ultrasound left axilla performed using standard protocol. COMPARISON: No exams were available for comparison FINDINGS: The left axilla and the lateral half of the left breast were evaluated sonographically. No solid or cystic masses, hypoechoic foci, areas of abnormal shadowing, or areas of skin thickening. IMPRESSION: No sonographically suspicious finding. DATA REPOSITORY:
== END ==
PROVIDERS: PCP Nurse Practitioner Family; Visit Provider Nurse Practitioner Family
DX: N64.89 Other specified disorders of breast (principal)
CPT/HCPCS: 76642

== ENCOUNTER 2022-10-17 13:33 | Outpatient (REF) | payer MEDICAID, SELFPAY ==
[2022-10-17 18:22] LABS: COMMENT (LAB VIEW ONLY) 117.37 mg/dL; Microalb ug/mg Crea 16.5 ug/mg Cr
== END 2022-10-17 13:34 | disposition home or self-care (01) ==
LOC: NCHCN 13:33
PROVIDERS: PCP Nurse Practitioner Family; Visit Provider Nurse Practitioner Family
DX: E11.9 Type 2 diabetes mellitus without complications (principal)
CPT/HCPCS: 82043; 82570

== ENCOUNTER 2022-11-06 10:22 | Outpatient (REF) | payer MEDICAID, SELFPAY | END 2022-11-06 10:23 | disposition home or self-care (01) | LOC: LBN 10:22 | PROVIDERS: PCP Nurse Practitioner Family; Visit Provider Physician Assistant Medical | DX: J02.9 Acute pharyngitis, unspecified (principal) | CPT/HCPCS: 87070 ==

== ENCOUNTER 2022-11-14 13:51 | Outpatient (REF) | payer MEDICAID, SELFPAY ==
[2022-11-14 15:46] LABS: Anion Gap 9.6 mmol/L (3-11); BUN 13 mg/dL (7-18); CO2 28.4 mmol/L (21.0-32.0); CREATININE 0.6 mg/dL (0.55-1.02); Calcium 9.4 mg/dL (8.5-10.1); Chloride 102 mmol/L (98-107); Estimated GFR 108.61 (mL/min/1.73m2); Glucose 162 mg/dL (74-106); Potassium 4.1 mmol/L (3.5-5.1); Sodium 140 mmol/L (136-145)
== END 2022-11-14 13:52 | disposition home or self-care (01) ==
LOC: NCHCN 13:51
PROVIDERS: PCP Nurse Practitioner Family; Visit Provider Nurse Practitioner Family
DX: E11.9 Type 2 diabetes mellitus without complications (principal); M10.9 Gout, unspecified
CPT/HCPCS: 80048; 84550

== ENCOUNTER 2023-04-09 16:35 | Outpatient (REF) | payer MEDICAID, SELFPAY ==
[2023-04-09 20:18] LABS: ALT 46 U/L (14-59); AST 29 U/L (15-37); Albumin 3.7 g/dL (3.4-5.0); Alkaline Phosphatase 64 U/L (46-116); Anion Gap 9.2 mmol/L (3-11); BUN 15 mg/dL (7-18); Bilirubin, Total 0.5 mg/dL (0.2-1.0); CO2 29.8 mmol/L (21.0-32.0); CREATININE 0.5 mg/dL (0.55-1.02); Calcium 9.8 mg/dL (8.5-10.1); Calculated LDL 96 mg/dL (<100); Chloride 102 mmol/L (98-107); Cholesterol 183 mg/dL (<200); Estimated GFR 113.48 (mL/min/1.73m2); Glucose 108 mg/dL (74-106); HDL Cholesterol 43 mg/dL (40-60); Potassium 4.1 mmol/L (3.5-5.1); Sodium 141 mmol/L (136-145); TSH (W/Ref FT4) 1.68 uIU/mL (0.36-3.74); Total Protein 7.5 g/dL (6.4-8.2); Triglyceride 224 mg/dL (<150)
== END 2023-04-09 16:36 | disposition home or self-care (01) ==
LOC: NCHCN 16:35
PROVIDERS: PCP Nurse Practitioner Family; Visit Provider Nurse Practitioner Family
DX: Z51.81 Encounter for therapeutic drug level monitoring (principal); E78.5 Hyperlipidemia, unspecified; I10 Essential (primary) hypertension
CPT/HCPCS: 80053; 80061; 84443

== ENCOUNTER 2023-08-22 18:00 | Outpatient (REF) | payer OTHER, SELFPAY | END 2023-08-22 18:01 | disposition home or self-care (01) | LOC: NCHCN 18:00 | PROVIDERS: PCP Nurse Practitioner Family; Referring Provider Nurse Practitioner Family; Visit Provider Nurse Practitioner Family | DX: E11.9 Type 2 diabetes mellitus without complications (principal) | CPT/HCPCS: 83036 ==

== ENCOUNTER 2024-04-06 19:33 | Outpatient (REF) | payer OTHER, SELFPAY ==
[2024-04-06 20:37] LABS: Abs Immature Grans 0.04 10^3/uL (0.0-0.06); Absolute Basophil Count 0.04 10^3/uL (0.0-0.2); Absolute Eosinophil Count 0.19 10^3/uL (0.0-0.7); Absolute Lymphocyte Count 2.74 10^3/uL (1.2-3.4); Absolute Monocyte Count 0.62 10^3/uL (0.1-0.8); Absolute Neutrophil Count 6.09 10^3/uL (1.2-6.7); Basophils % 0.4 %; HCT 46.9 % (36.0-46.0); HGB 15.4 g/dL (11.2-15.7); Immature Grans % 0.4 %; Lymphocytes % 28.2 %; MCH 28.8 pg (27.0-33.0); MCHC 32.8 % (32.0-36.0); MCV 88 fL (80-95); Monocytes % 6.4 %; Neutrophils % 62.6 %; Platelet Count 271 10^3/uL (130-400); RBC 5.35 10^6/uL (3.93-5.22); RDW 13.9 % (11.7-14.6); RDW-SD 44.1 fL; WBC 9.72 10^3/uL (4.4-10.8)
[2024-04-06 21:14] LABS: ALT 72 U/L (14-59); AST 57 U/L (15-37); Albumin 3.9 g/dL (3.4-5.0); Alkaline Phosphatase 73 U/L (46-116); Anion Gap 8.1 mmol/L (3-11); BUN 19 mg/dL (7-18); CO2 31.9 mmol/L (21.0-32.0); CREATININE 0.5 mg/dL (0.55-1.02); Calculated LDL 120 mg/dL (<100); Chloride 103 mmol/L (98-107); Cholesterol 207 mg/dL (<200); Estimated GFR 112.78 (mL/min/1.73m2); Ferritin 57 ng/mL (8-252); Glucose 115 mg/dL (74-106); HDL Cholesterol 47 mg/dL (40-60); Sodium 143 mmol/L (136-145); TSH (W/Ref FT4) 1.34 uIU/mL (0.36-3.74); Total Protein 7.3 g/dL (6.4-8.2); Triglyceride 202 mg/dL (<150); Vitamin B12 682 pg/mL (193-986)
[2024-04-06 21:37] LABS: Folate > 20.0 ng/mL (8.6-20.0); Vitamin D 25 Total 107.2 ng/mL (30-100)
[2024-04-06 21:41] LABS: Iron 52 ug/dL (50-170); Total Iron Binding Capacity 446 ug/dL (250-450); Transferrin Sat 12 % (15-50)
== END 2024-04-06 19:34 | disposition home or self-care (01) ==
LOC: NCHCN 19:33
PROVIDERS: Visit Provider Nurse Practitioner Family
DX: R53.83 Other fatigue (principal); E78.5 Hyperlipidemia, unspecified; E11.9 Type 2 diabetes mellitus without complications
CPT/HCPCS: 80053; 80061; 82306; 82607; 82728; 82746; 83036; 83540; 83550; 84443; 85025

== ENCOUNTER 2024-04-09 00:35 | Outpatient (CLI) | payer OTHER, SELFPAY ==
--- NOTE | 2024-04-09 | DI.MAMMO_ITS ---
Exam(s) MAMMO SCREENING EXAM: MAMMO SCREENING CLINICAL HISTORY: SCREENING, Z12.31. TECHNIQUE: Bilateral full field digital CC and MLO mammographic images were obtained with 3D tomosyn thesis and utilizing computer aided detection (CAD). COMPARISON: Prior mammograms were reviewed. FINDINGS: There has been no significant change in the appearance and distribution of the fibroglandular tissue. There are no CAD designations. There are no new spiculated masses nor malignant appearing microcalcification groups. There is no significant architectural distortion nor skin thickening-retraction. IMPRESSION: No radiographic evidence of malignancy. BI-RADS Category 1 - Negative Breast Density - Category A - Almost entirely fatty Breast density Category C or D implies that the patient has dense breast tissue. Dense breast tissue can make it harder to find cancer on a mammogram. Dense breast tissue is also associated with an incr eased risk of breast cancer. This information about the result of the mammogram report was provided to the patient to raise their awareness. Use this report when you speak with the patient about their risks for breast cancer, which includes their family history. At that time, you may recommend additional screening tests (Ultrasoun d or MRI) as these tests may add significant information. A negative radiographic report should not delay biopsy if a dominant or clinically suspicious mass is present. Up to ten percent of cancers are not identified on mammography. A negative report may reinforce clinical impression. Adenosis and dense breasts may obscure an underlying neoplasm. False positive reports average 6 to 10%. Patient will receive a letter notifying them of these results.
== END 2024-04-09 00:55 ==
PROVIDERS: Visit Provider Nurse Practitioner Family
DX: Z12.31 Encounter for screening mammogram for malignant neoplasm of breast (principal)
CPT/HCPCS: 77063; 77067

== ENCOUNTER 2024-05-21 14:00 | Outpatient (REF) | payer OTHER, SELFPAY | END 2024-05-21 14:01 | disposition home or self-care (01) | LOC: NCHCN 14:00 | PROVIDERS: PCP Student in an Organized Health Care Education/Training Program; Visit Provider Student in an Organized Health Care Education/Training Program | DX: J02.9 Acute pharyngitis, unspecified (principal) | CPT/HCPCS: 87070 ==

== ENCOUNTER 2024-07-14 13:25 | Outpatient (REF) | payer OTHER, SELFPAY | END 2024-07-14 13:26 | disposition home or self-care (01) | LOC: LBN 13:25 | PROVIDERS: PCP Student in an Organized Health Care Education/Training Program; Visit Provider Physician Assistant Medical | DX: B34.9 Viral infection, unspecified (principal) | CPT/HCPCS: 87070 ==

== ENCOUNTER 2024-10-28 15:35 | Outpatient (REF) | payer OTHER, SELFPAY ==
[2024-10-28 16:07] LABS: Calculated LDL 107 mg/dL (<100); Cholesterol 190 mg/dL (<200); HDL Cholesterol 42 mg/dL (>or=50); Triglyceride 207 mg/dL (<150); Vitamin D 25 Total 76 ng/mL (30-100)
[2024-10-28 16:54] LABS: Microalb ug/mg Crea 33.8 ug/mg Cr
== END 2024-10-28 15:36 | disposition home or self-care (01) ==
LOC: NCHCN 15:35
PROVIDERS: PCP Student in an Organized Health Care Education/Training Program; Visit Provider Nurse Practitioner Family
DX: E11.9 Type 2 diabetes mellitus without complications (principal); E67.3 Hypervitaminosis D; E78.2 Mixed hyperlipidemia
CPT/HCPCS: 80061; 82306; 82043; 82570